=== PATIENT | female | born 1950 | race Caucasian/White ===

== ENCOUNTER 2019-02-25 07:39 | Day surgery (SDC) | payer OTHER ==
[~2019-02-25] VITALS: Ht 149.9 cm; Wt 73.3 kg
[~2019-02-25 07:39] MED LIST: ATOR40TA PO; BRIMONIDINE TART5 M1 BOTHEYES; LATA.005SO BOTHEYES; MYRBETRIQ25 MG PO; TIMO.5OPSO BOTHEYES; Vitamin D2000 UNIT PO
[2019-02-25] MEDS ORDERED: Aspir 8181 MG (08:33)
--- NOTE | 2019-02-25 08:57 | NUR ---
02/25/19 0857 Leslie Thornton OBSERVED PT.'S FACE BRUISED UP(BLACK & BLUE & REDDENED). PT. ALSO WITH EYES SWOLLEN & WHITES OF EYES WITH BLOOD SHOT LOOKING. PT. VERBALIZES SHE WAS WALKING IN THE DARK & FELL IN A DITCH. PT. DENIES ANY PAIN. PT. VERBALIZES HER FACE DOESN'T HURT. CALL LIGHT IS WITHIN REACH. PT. VERBALIZES BEING WARM ENOUGH.
--- NOTE | 2019-02-25 10:09 | NUR ---
02/25/19 1009 Leslie Thornton PT. VERBALIZES HAVING A SORE THROAT. PT. INSTRUCTED THAT SHE HAS A STRIDOR SOUND RESPIRATIONS & WAS SUCTIONED & WAS GIVEN A JAW THRUST.
== END 2019-02-25 10:37 | disposition home or self-care (01) ==
LOC: ORSCSDS 07:39
PROVIDERS: Student in an Organized Health Care Education/Training Program
PROC: 0DJD8ZZ Inspection of Lower Intestinal Tract, Via Natural or Artificial Opening Endoscopic (ICD-10-PCS; principal; 2019-02-25 09:00)
DX: Z12.11 Encounter for screening for malignant neoplasm of colon (principal); Z80.0 Family history of malignant neoplasm of digestive organs; K57.30 Diverticulosis of large intestine without perforation or abscess without bleeding; K64.8 Other hemorrhoids; Z79.82 Long term (current) use of aspirin
CPT/HCPCS: 82947; J2704; J7120

== ENCOUNTER → 2019-11-27 | Outpatient (CLI) | payer OTHER ==
[~2019-11-27] MED LIST changes: +Aspir 8181 MG
== END | disposition home or self-care (01) ==
LOC: LAB SHORT 07:33 → PLD 07:33
DX: D22.5 Melanocytic nevi of trunk (principal)
CPT/HCPCS: 88305; 88342

== ENCOUNTER 2024-02-29 08:05 | Day surgery (SDC) | payer OTHER ==
[~2024-02-29] VITALS: Ht 149.9 cm; Wt 64.4 kg
[~2024-02-29 08:05] MED LIST changes: +Balanced Salt Epinephrine Irrigation Solution 500 mL IR SCH; +Lidocaine HCl/Pf 1% 5 ML VIAL XX SCH; +Moxifloxacin HCL 0.5 MG/0.1 ML 0.4MLSYR LEFTEYE SCH; +PHENYLEPHRINE\\TROPICAMIDE\\TETRACAINE OPHTHALMIC DILATING SOLN LEFTEYE PRN; +Povidone-Iodine 450 DROP/30 ML Solution LEFTEYE SCH; +Triamcinolone Inj Susp 40 MG / ML 1ML Vial INJ SCH; +Triamcinolone Inj Susp 40 MG / ML 1ML Vial ONE
[2024-02-29] MEDS ORDERED: TROSPIUM CHLORI20 M1 PO (08:33)
--- NOTE | 2024-02-29 08:42 | NUR ---
02/29/24 0842 Laurie Tabor AT 0834 PLEDGET AT 0824
[2024-02-29] MEDS ORDERED: Midazolam HCl 1MG / ML 2ML Vial ONE (08:50)
[2024-02-29] MEDS ORDERED: Tetracaine HCl 0.5% Opth Soln 15 ml XX ONE (09:25)
[2024-02-29 09:56] VITALS: BP 109/79
== END 2024-02-29 10:15 | disposition home or self-care (01) ==
LOC: ORSCSDS 08:05
PROVIDERS: Ophthalmology
PROC: 08RK3JZ Replacement of Left Lens with Synthetic Substitute, Percutaneous Approach (ICD-10-PCS; principal; 2024-02-29 09:30)
DX: H25.813 Combined forms of age-related cataract, bilateral (principal); H52.202 Unspecified astigmatism, left eye; Z79.899 Other long term (current) drug therapy
CPT/HCPCS: J2250; J3301; V2632

== ENCOUNTER 2024-03-07 12:34 | Day surgery (SDC) | payer OTHER ==
[~2024-03-07] VITALS: Ht 149.9 cm; Wt 63.9 kg
[~2024-03-07 12:34] MED LIST changes: -Moxifloxacin HCL 0.5 MG/0.1 ML 0.4MLSYR LEFTEYE SCH; +Moxifloxacin HCL 0.5 MG/0.1 ML 0.4MLSYR RIGHTEYE SCH; -PHENYLEPHRINE\\TROPICAMIDE\\TETRACAINE OPHTHALMIC DILATING SOLN LEFTEYE PRN; +PHENYLEPHRINE\\TROPICAMIDE\\TETRACAINE OPHTHALMIC DILATING SOLN RIGHTEYE PRN; -Povidone-Iodine 450 DROP/30 ML Solution LEFTEYE SCH; +Povidone-Iodine 450 DROP/30 ML Solution ONE; +Povidone-Iodine 450 DROP/30 ML Solution RIGHTEYE SCH; +TROSPIUM CHLORI20 M1 PO; +Tetracaine HCl/Pf 0.5% Opth Soln 4 ml ONE
[2024-03-07 14:31] VITALS: BP 140/71
== END 2024-03-07 14:31 | disposition home or self-care (01) ==
LOC: ORSCSDS 12:34
PROVIDERS: Ophthalmology
PROC: 08RJ3JZ Replacement of Right Lens with Synthetic Substitute, Percutaneous Approach (ICD-10-PCS; principal; 2024-03-07 14:00)
DX: H25.811 Combined forms of age-related cataract, right eye (principal); H52.201 Unspecified astigmatism, right eye; Z96.1 Presence of intraocular lens; H40.1230 Low-tension glaucoma, bilateral, stage unspecified; K21.9 Gastro-esophageal reflux disease without esophagitis; Z79.82 Long term (current) use of aspirin; Z79.899 Other long term (current) drug therapy
CPT/HCPCS: 82947; J3301; V2632